=== PATIENT | female | born 1975 | race Caucasian/White ===

== ENCOUNTER 2021-12-07 05:57 | Day surgery (SDC) | payer OTHER ==
[2021-12-07] MEDS ORDERED: Lactated Ringers 1,000 ML IV SCH (06:30)
[2021-12-07] MEDS ORDERED: Versed 2 MG/2 ML Injection ONE (06:44)
[2021-12-07] MEDS ORDERED: DIPRIVAN 200 MG/20 ML IV ONE ×2 (06:44→07:44)
[2021-12-07 08:45] VITALS: O2SAT 96
[2021-12-07 08:49] VITALS: BP 150/97; PULSE 63
--- NOTE | 2021-12-07 11:31 | OP ---
SURGERY DATE/TIME: 12/07/2021 0736 PREOPERATIVE DIAGNOSES: 1) Persistent gastroesophageal reflux disease. 2) Epigastric abdominal pain. POSTOPERATIVE DIAGNOSES: 1) Moderate gastritis. 2) Small hiatal hernia. PROCEDURE: EGD. SURGEON: Suresh White M.D. ANESTHESIA: MAC by Shantanu Saunders CRNA. ESTIMATED BLOOD LOSS: Minimal. SPECIMENS: Two cold forceps biopsies from the gastric antrum. DESCRIPTION OF PROCEDURE: After informed written consent was obtained, the patient was taken to the endoscopy suite. She had a bite block inserted and anesthesia was titrated to the desired level of consciousness. The endoscope was inserted into the posterior oropharynx and under direct visualization the esophagus was easily traversed. The esophageal mucosa had no obvious abnormality. Upon entering the stomach there was a normal rugated gastric mucosa free of any lesions or defects. At the level of the gastric antrum there were moderate gastritis-type changes with no obvious bleeding. Likewise, the proximal duodenum had some mild duodenitis changes and no bleeding or ulceration. Two cold forceps biopsies were taken from the gastric antrum and sent for Helicobacter pylori testing. No other abnormalities were encountered other than a small hiatal hernia upon withdrawal. Gastroesophageal junction appeared normal. Again, the esophageal mucosa had no lesions or defects. The scope was removed and the patient was transferred to the recovery room in good condition. I have advised that she hold her NSAID and await pathology results.
== END 2021-12-07 08:40 | disposition home or self-care (01) ==
LOC: SDC 05:57
PROVIDERS: ATTEND Family Medicine
DX: K29.70 Gastritis, unspecified, without bleeding (principal); K44.9 Diaphragmatic hernia without obstruction or gangrene; K21.9 Gastro-esophageal reflux disease without esophagitis; R10.13 Epigastric pain
CPT/HCPCS: J2250; J2704

== ENCOUNTER 2023-07-05 05:50 | Day surgery (SDC) | payer OTHER ==
[2023-07-05 06:15] VITALS: RESP 18
[2023-07-05] MEDS ORDERED: Lactated Ringers 1,000 ML IV SCH (06:30)
[2023-07-05 06:39] LABS: ANION GAP 8.4 MEQ/L (5-15); Creatinine 1 0.73 mg/dL (0.52-1.04); EST GLOMERULAR FILTRATION RATE 100.1 ML/MIN; Potassium 3.6 mmol/L (3.5-5.1)
[2023-07-05] MEDS ORDERED: Versed 2 MG/2 ML Injection ONE (07:28)
[2023-07-05] MEDS ORDERED: DIPRIVAN 200 MG/20 ML IV ONE ×3 (07:28→08:26)
[2023-07-05] MEDS ORDERED: Lactated Ringers 1,000 ML IV ONE (08:17)
[2023-07-05 09:04] VITALS: O2SAT 100
[2023-07-05 09:18] VITALS: BP 131/84; PULSE 72; TEMP 97.6
--- NOTE | 2023-07-05 09:28 | OP ---
SURGERY DATE/TIME: 07/05/2023 0804 PREOPERATIVE DIAGNOSIS: Screening colonoscopy. POSTOPERATIVE DIAGNOSIS: Sigmoid colon polyp. PROCEDURE: Colonoscopy. SURGEON: Suresh White M.D. ANESTHESIA: MAC by Shantanu Saunders CRNA. ESTIMATED BLOOD LOSS: Minimal. SPECIMENS: Hot forceps polypectomy from the sigmoid colon. DESCRIPTION OF PROCEDURE: After informed written consent was obtained, the patient was taken to the endoscopy suite. She was placed in left lateral decubitus position. Anesthesia was titrated to desired level of consciousness. Digital rectal exam showed normal sphincter tone and no internal lesions. The scope was inserted into the rectum and sequentially the entire colonic mucosa was traversed. The level of cecum was reached and verified with direct visualization of the ileocecal valve. Upon withdrawal careful mucosal inspection revealed no gross abnormalities until the distal sigmoid colon was reached. There was a small sessile polyp which was grasped with forceps, cauterized and sent for pathology testing. The remainder of the exam was unremarkable. Prior to withdrawal retroflexion performed and showed no internal lesions. The scope was removed. The patient was transferred to the recovery room in good condition.
== END 2023-07-05 09:24 | disposition home or self-care (01) ==
LOC: SDC 05:50
PROVIDERS: ATTEND Family Medicine
DX: Z12.11 Encounter for screening for malignant neoplasm of colon (principal); D12.5 Benign neoplasm of sigmoid colon
CPT/HCPCS: 36415; 80048; J2250; J2704

== ENCOUNTER 2024-11-21 05:55 | Day surgery (SDC) | payer OTHER ==
[2024-11-21] MEDS ORDERED: celeBREX 100 MG ONE (06:03)
[2024-11-21] MEDS ORDERED: TYLENOL EXTRA STRENGTH 500 MG ONE (06:03)
[2024-11-21] MEDS ORDERED: NEURONTIN ONE (06:03)
[2024-11-21] MEDS ORDERED: Lactated Ringers 1,000 ML IV ONE ×2 (06:03→06:31)
[2024-11-21] MEDS ORDERED: CLINDAMYCIN-D5W 900 MG/50 ML*** 900 MG/50 ML BAG IV ONE (06:03)
[2024-11-21] MEDS: NEURONTIN PO ONE (06:09)
[2024-11-21] MEDS: celeBREX 100 MG PO ONE (06:09)
[2024-11-21] MEDS: TYLENOL EXTRA STRENGTH 500 MG PO ONE (06:09)
[2024-11-21] MEDS: CLINDAMYCIN-D5W 900 MG/50 ML*** 900 MG/50 ML BAG IV ONE (06:09)
[2024-11-21] MEDS: Lactated Ringers 1,000 ML IV SCH (06:09)
[2024-11-21 06:26] VITALS: RESP 18
[2024-11-21] MEDS ORDERED: MARCAINE 0.25% PF/ EPI 1:200,000 ONE (06:31)
[2024-11-21] MEDS ORDERED: propofoL IV ONE (07:12)
[2024-11-21] MEDS ORDERED: TORAdol 30 mg Injection ONE (07:13)
[2024-11-21] MEDS ORDERED: Zofran 4 MG/2 ML VIAL ONE (07:13)
[2024-11-21] MEDS ORDERED: Xylocaine-Mpf 2% 5 Ml Vial ONE (07:13)
[2024-11-21] MEDS ORDERED: Versed 2 MG/2 ML Injection ONE (07:45)
[2024-11-21] MEDS ORDERED: SUBLIMAZE 100 MCG/2 ML ONE ×2 (07:45→09:11)
[2024-11-21 09:46] VITALS: O2SAT 98
[2024-11-21 09:59] VITALS: BP 134/83; PULSE 67; TEMP 96.3
--- NOTE | 2024-11-23 22:53 | OP ---
SURGERY DATE/TIME: 11/21/2024 [id number] PREOPERATIVE DIAGNOSES: 1) Torn right medial meniscus. 2) Chondromalacia of patella. POSTOPERATIVE DIAGNOSES: 1) Torn right medial meniscus. 2) Chondromalacia of patella and trochlear groove as well as medial and lateral femoral condyles and tibial plateaus. PROCEDURE: Arthroscopy of the right knee with partial medial meniscectomy and 3-compartment chondroplasty. SURGEON: Lazarus Wood DO ANESTHESIA: General. DESCRIPTION OF PROCEDURE AND FINDINGS: The patient was identified and informed consent was obtained. The patient was taken to the operative suite where she was placed into the supine position on the operating table. General anesthetic was administered. Tourniquet placed high on the right thigh. Right lower extremity was placed in a knee handley and prepped and draped in the usual sterile fashion. A standard time-out was taken. Leg was exsanguinated, and the tourniquet was elevated to 350 mmHg. At this point, standard superomedial portal was created with an 11-blade. Trocar and cannula were placed into the joint. Joint was distended with the arthroscopic pump. Inferolateral portal created also with the #11 blade, and the arthroscope was then placed in through a cannula. An 18-gauge spinal needle identified the level for the inferomedial portal which was also created with an 11-blade. The knee was inspected in a systematic fashion beginning in the suprapatellar pouch. There was some very minimal reactive synovitis which was incidentally shaved. Undersurface of patella and trochlear groove had grade 3 chondromalacia, and a chondroplasty was performed utilizing the motorized shaver. Gutters were inspected. No loose bodies or synovial hypertrophy. Scope was placed in the medial compartment. A tear of the posterior horn of the medial meniscus was encountered. The patient also was noted to have grade 3 chondromalacia of the medial femoral condyle and tibial plateau. A chondroplasty was performed. There was some significant thinning of the articular cartilage noted as well. Once the meniscal tear had been resected and the edges shaved, scope was then placed into the intercondylar notch region where the anterior cruciate ligament was inspected and noted to be intact. Scope was placed into the lateral compartment where some very minimal fraying of the lateral meniscus was noted. This was incidentally trimmed. Femoral condyle and tibial plateau had some grade 2 chondromalacia, and a chondroplasty was also performed on the tibial plateau and femoral condyle. The knee was then reinspected and copiously irrigated. No further pathology was identified. The knee was copiously irrigated. The instrumentation was removed, and the portal sites were closed with interrupted 4-0 nylon suture. It should be noted the knee was infiltrated with 30 mL of 0.25% Marcaine with epinephrine. Adaptics, 4 x 4's and a standard postop arthroscopy dressing applied. The patient was transferred to the cart and taken to the recovery room in satisfactory condition having tolerated the procedure well.
== END 2024-11-21 10:08 | disposition home or self-care (01) ==
LOC: SDC 05:55
PROVIDERS: ATTEND Orthopaedic Surgery
DX: S83.221A Peripheral tear of medial meniscus, current injury, right knee, initial encounter (principal); M25.561 Pain in right knee; M22.41 Chondromalacia patellae, right knee
CPT/HCPCS: 29881; J1885; J2250; J2405; J2704; J3010; A9270-GY